=== PATIENT | male | born 1955 | race Caucasian/White ===

== ENCOUNTER 2016-10-31 13:04 | Emergency (ER) | payer SELFPAY ==
[~2016-10-31] VITALS: Ht 172.7 cm; Wt 59.4 kg
[2016-10-31 15:06] LABS: HEMATOCRIT 40.9 % (38.0-50.0); MCH 29.9 PG (29.0-34.0); MCV 90.7 FL (86-99); RBC DIS.WIDTH-CV 13.2 % (11.8-14.6); RBC DIS.WIDTH-SD 44.8 % (39-53); RED BLOOD COUNT 4.51 M/uL (4.00-5.50); WHITE BLOOD COUNT 6.2 K/uL (4.1-10.2)
[2016-10-31 15:21] LABS: CHLORIDE 107 mEq/L (99-109); POTASSIUM 4.3 mEq/L (3.7-5.4); SODIUM 141 mEq/L (136-147)
[2016-10-31 15:23] LABS: GLUCOSE 90 mg/dL (70-99)
[2016-10-31 15:25] LABS: ANION GAP 10 MEQ/L (2-14)
[2016-10-31 15:27] LABS: GFR ESTIMATE (CALCULATED) > 59 mL/min/
[2016-10-31 15:28] LABS: UREA NITROGEN (BUN) 19 mg/dL (9-23)
[2016-10-31 15:33] LABS: TROP-I INTERPRETATION NEGATIVE; TROPONIN-I < 0.01 ng/mL (0.0-0.30)
[2016-10-31 16:02] LABS: HEMATOLOGY COMMENT 1 SN; MEAN PLAT.VOLUME 10.2 uM^3 (9.0-12.4); PLAT.SUFFICIENCY ADEQUATE; PLATELET COUNT 266 K/uL (156-360)
[2016-10-31 17:57] LABS: TROP-I INTERPRETATION NEGATIVE; TROPONIN-I < 0.01 ng/mL (0.0-0.30)
[2016-10-31] MEDS ORDERED: NAPROSYN500 MG PO (18:15)
[2016-10-31] MEDS ORDERED: VALIUM5 MG PO (18:15)
[2016-10-31 18:31] VITALS: BP 136/72
== END 2016-10-31 18:38 | disposition home or self-care (01) ==
LOC: EME 13:04
PROVIDERS: Emergency Medicine
DX: S16.1XXA Strain of muscle, fascia and tendon at neck level, initial encounter (principal); M62.838 Other muscle spasm; X50.9XXA Other and unspecified overexertion or strenuous movements or postures, initial encounter; Y93.02 Activity, running
CPT/HCPCS: 70498; 71260; 80048; 84484; 85027; 93005; 99281; 99285; J1885; J3010